=== PATIENT | female | born 1995 | race African-American/Black ===

== ENCOUNTER 2020-07-01 00:40 | Emergency (ER) | payer MEDICAID ==
[~2020-07-01] VITALS: Ht 175.3 cm; Wt 83.9 kg
[2020-07-01 00:40] VITALS: BP 80/23
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
--- NOTE | 2020-07-01 00:40 | NUR ---
PT TAKEN TO BED 11. DR. GONZALEZ AT BEDSIDE
[2020-07-01] MEDS ORDERED: NACL 0.9% 1,000 ML IV ONE (00:50)
[2020-07-01] MEDS ORDERED: fentaNYL citrate 0.05 MG/ML VIAL IVP ONE (00:50)
--- NOTE | 2020-07-01 00:56 | NUR ---
[place] [facility] AT BEDSIDE
[2020-07-01 01:06] LABS: BASOPHILS # (AUTO) 0.1 K/uL (0.00-0.22); BASOPHILS % (AUTO) 0.8 % (0.0-2.0); EOSINOPHILS # (AUTO) 0.7 K/uL (0-0.4); EOSINOPHILS % (AUTO) 7.8 % (0.0-4.0); HEMATOCRIT 35.4 % (36-48); HEMOGLOBIN 11.9 g/dL (12.0-16.0); LYMPHOCYTES # (AUTO) 4.2 K/uL (2.5-16.5); LYMPHOCYTES % (AUTO) 47.5 % (20.5-51.1); MEAN CORPUSCULAR HEMOGLOBIN 32 pg (27-31); MEAN CORPUSCULAR HGB CONC 34 g/dL (33-37); MEAN CORPUSCULAR VOLUME 96.3 fL (80-94); MONOCYTES # (AUTO) 0.7 K/uL (0.8-1.0); MONOCYTES % (AUTO) 7.5 % (1.7-9.3); NEUTROPHILS # (AUTO) 3.2 K/uL (1.8-7.7); NEUTROPHILS % (AUTO) 36.4 % (42.2-75.2); PLATELET COUNT (AUTO) 310 K/uL (140-450); RED BLOOD CELL COUNT(AUTO) 3.67 MIL/uL (4.20-5.40); RED CELL DISTRIBUTION WIDTH 13.4 % (11.6-13.7); WHITE BLOOD COUNT (AUTO) 8.7 K/uL (4.8-10.8)
--- NOTE | 2020-07-01 01:13 | NUR ---
[facility] CODE 3 TRANSPORT AT BEDSIDE
[2020-07-01 01:14] VITALS: BP 108/56
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
--- NOTE | 2020-07-01 01:25 | NUR ---
PT TAKEN BY [facility] TRANSPORT TO [facility] ER
[2020-07-01 01:28] LABS: PROTHROMBIN TIME 10.4 secs (10.8-13.4)
[2020-07-01 01:45] LABS: ANION GAP 15.8 (8-16); CARBON DIOXIDE 22.9 mmol/L (21-32); CHLORIDE 104 mmol/L (98-107); GFR ARICAN-AMERICAN 88 mL/min (>90); GLUCOSE 99 mg/dL (74-106); POTASSIUM 3.7 mmol/L (3.5-5.1); SODIUM SERUM 139 mmol/L (136-145); UREA NITROGEN, BLOOD 13 mg/dL (7-18)
[2020-07-01 01:46] LABS: ALBUMIN 3.5 g/dL (3.4-5.0); ASPARTATE AMINOTRANSFERASE 18 U/L (15-37); TOTAL BILIRUBIN 0.2 mg/dL (0.0-1.0)
== END 2020-07-01 01:25 | disposition critical access hospital (66) ==
LOC: MED 00:40
DX: S21.119A Laceration without foreign body of unspecified front wall of thorax without penetration into thoracic cavity, initial encounter (principal); S51.811A Laceration without foreign body of right forearm, initial encounter; F12.90 Cannabis use, unspecified, uncomplicated; X99.8XXA Assault by other sharp object, initial encounter; Y93.89 Activity, other specified; Y92.89 Other specified places as the place of occurrence of the external cause; Y99.8 Other external cause status
CPT/HCPCS: 36415; 71045; 80053; 85025; 85610; 85730; 86886; 86900; 86901; 90471; 90715; 96374; 99291; G0482; J3010; J7030; 99284